=== PATIENT | male | born 1955 | race Caucasian/White ===

== ENCOUNTER → 2017-08-16 | Outpatient (CLI) | payer OTHER | LOC: CIMAGING 10:31 | PROVIDERS: ATTEND Physical Medicine & Rehabilitation | DX: S86.892A Other injury of other muscle(s) and tendon(s) at lower leg level, left leg, initial encounter (principal); M84.362A Stress fracture, left tibia, initial encounter for fracture; I70.90 Unspecified atherosclerosis | CPT/HCPCS: 73590-PO ==